=== PATIENT | female | born 1975 | race American Indian/Alaskan Native ===

== ENCOUNTER 2016-09-27 10:44 | Emergency (ER) | payer OTHER ==
[2016-09-27 11:06] VITALS: BP 130/99
--- NOTE | 2016-09-27 13:24 | Emergency Department Report ---
ED ENT HPI - General Chief complaint: Dental/Oral Stated complaint: FACIAL PAIN/SWELLING Time Seen by Provider: 09/27/16 13:22 Source: patient Mode of arrival: Ambulatory Limitations: No Limitations - History of Present Illness MD complaint: tooth pain, ear pain -: Gradual Severity scale (0 -10): 5 Quality: aching Context- Dental: history of dental caries, poor dental care - Related Data Home Medications Medication Instructions Recorded Confirmed Last Taken Aspirin EC [Aspirin Enteric Coated 81 mg PO DAILY 08/21/15 08/21/15 Unknown TAB] FLUoxetine HCL [PROzac] 40 mg PO DAILY 08/21/15 08/21/15 Unknown Wellbutrin 150 mg PO DAILY 08/21/15 08/21/15 Unknown Previous Rx's Medication Instructions Recorded Last Taken Type Famotidine [Pepcid] 20 mg PO BID #60 tablet 08/23/15 Unknown Rx Ibuprofen [Motrin] 600 mg PO Q8H PRN #40 tablet 01/20/16 Unknown Rx oxyCODONE /ACETAMINOPHEN [Percocet 1 tab PO Q4H PRN #15 tablet 01/20/16 Unknown Rx 5/325 mg] Azithromycin [Zithromax TAB] 250 mg PO QDAY #5 tablet 04/06/16 Unknown Rx Amoxicillin [Amoxicillin TAB] 875 mg PO BID #20 tablet 09/27/16 Unknown Rx Tramadol ER (Nf) [Ultram ER (Nf)] 50 mg PO TID #12 tab.er.24h 09/27/16 Unknown Rx Allergies Allergy/AdvReac Type Severity Reaction Status Date / Time Penicillins Allergy Anaphylaxis Verified 01/20/16 14:55 ED Dental HPI - General Chief complaint: Dental/Oral Stated complaint: FACIAL PAIN/SWELLING Time Seen by Provider: 09/27/16 13:22 Source: patient Mode of arrival: Ambulatory Limitations: No Limitations - History of Present Illness complaint: tooth pain, ear pain -: Gradual 1 - LOCALIZED SEVERE DECAY.NO TRISMUS OR ADENOPATHY ASSOCIATED. Severity: moderate Worsens with: chewing, hot/cold liquids Context- Dental: history of dental caries, poor dental care Dental Associated Symptons: Yes: Earache - Related Data Home Medications Medication Instructions Recorded Confirmed Last Taken Aspirin EC [Aspirin Enteric Coated 81 mg PO DAILY 08/21/15 08/21/15 Unknown TAB] FLUoxetine HCL [PROzac] 40 mg PO DAILY 08/21/15 08/21/15 Unknown Wellbutrin 150 mg PO DAILY 08/21/15 08/21/15 Unknown Previous Rx's Medication Instructions Recorded Last Taken Type Famotidine [Pepcid] 20 mg PO BID #60 tablet 08/23/15 Unknown Rx Ibuprofen [Motrin] 600 mg PO Q8H PRN #40 tablet 01/20/16 Unknown Rx oxyCODONE /ACETAMINOPHEN [Percocet 1 tab PO Q4H PRN #15 tablet 01/20/16 Unknown Rx 5/325 mg] Azithromycin [Zithromax TAB] 250 mg PO QDAY #5 tablet 04/06/16 Unknown Rx Amoxicillin [Amoxicillin TAB] 875 mg PO BID #20 tablet 09/27/16 Unknown Rx Tramadol ER (Nf) [Ultram ER (Nf)] 50 mg PO TID #12 tab.er.24h 09/27/16 Unknown Rx Allergies Allergy/AdvReac Type Severity Reaction Status Date / Time Penicillins Allergy Anaphylaxis Verified 01/20/16 14:55 ED Review of Systems ROS: Stated complaint: FACIAL PAIN/SWELLING Other details as noted in HPI Constitutional: denies: chills, fever Eyes: denies: eye pain, eye discharge, vision change ENT: as per HPI, ear pain, dental pain. denies: throat pain Respiratory: denies: cough, shortness of breath, wheezing Cardiovascular: denies: chest pain, palpitations Endocrine: no symptoms reported Gastrointestinal: denies: abdominal pain, nausea, diarrhea Genitourinary: denies: urgency, dysuria, discharge Musculoskeletal: denies: back pain, joint swelling, arthralgia Skin: denies: rash, lesions Neurological: denies: headache, weakness, paresthesias Psychiatric: denies: anxiety, depression Hematological/Lymphatic: denies: easy bleeding, easy bruising ED Past Medical Hx - Past Medical History Hx Hypertension: Yes (1992) Hx Congestive Heart Failure: No Hx Diabetes: Yes Hx Asthma: Yes Hx COPD: No - Surgical History Additional Surgical History: LEG SURGERY,. uterine ablasion - Social History Smoking Status: Never Smoker Substance Use Type: Marijuana - Medications Home Medications: Home Medications Medication Instructions Recorded Confirmed Last Taken Type Aspirin EC [Aspirin Enteric Coated 81 mg PO DAILY 08/21/15 08/21/15 Unknown History TAB] FLUoxetine HCL [PROzac] 40 mg PO DAILY 08/21/15 08/21/15 Unknown History Wellbutrin 150 mg PO DAILY 08/21/15 08/21/15 Unknown History Famotidine [Pepcid] 20 mg PO BID #60 tablet 08/23/15 Unknown Rx Ibuprofen [Motrin] 600 mg PO Q8H PRN #40 tablet 01/20/16 Unknown Rx oxyCODONE /ACETAMINOPHEN [Percocet 1 tab PO Q4H PRN #15 tablet 01/20/16 Unknown Rx 5/325 mg] Azithromycin [Zithromax TAB] 250 mg PO QDAY #5 tablet 04/06/16 Unknown Rx Amoxicillin [Amoxicillin TAB] 875 mg PO BID #20 tablet 09/27/16 Unknown Rx Tramadol ER (Nf) [Ultram ER (Nf)] 50 mg PO TID #12 tab.er.24h 09/27/16 Unknown Rx ED Physical Exam - General Limitations: No Limitations General appearance: alert, in no apparent distress - Head Head exam: Present: atraumatic, normocephalic - Eye Eye exam: Present: normal appearance, PERRL, EOMI Pupils: Present: normal accommodation, irregular - ENT ENT exam: Present: mucous membranes moist, other (see dental decay image) - Neck Neck exam: Present: normal inspection - Respiratory Respiratory exam: Present: normal lung sounds bilaterally. Absent: respiratory distress - Cardiovascular Cardiovascular Exam: Present: regular rate, normal rhythm. Absent: systolic murmur, diastolic murmur, rubs, gallop - GI/Abdominal GI/Abdominal exam: Present: soft, normal bowel sounds - Extremities Exam Extremities exam: Present: normal inspection - Back Exam Back exam: Present: normal inspection - Neurological Exam Neurological exam: Present: alert, oriented X3 - Psychiatric Psychiatric exam: Present: normal affect, normal mood - Skin Skin exam: Present: warm, dry, intact, normal color. Absent: rash ED Course Vital Signs 09/27/16 11:01 Temperature 98.6 F Pulse Rate 89 Respiratory 18 Rate Blood Pressure 130/99 O2 Sat by Pulse 100 Oximetry Critical care attestation.: If time is entered above; I have spent that time in minutes in the direct care of this critically ill patient, excluding procedure time. ED Disposition Clinical Impression: Dental decay Disposition: DISCHARGED TO HOME OR SELFCARE Is pt being admited?: No Condition: Stable Instructions: Toothache (ED), Dental Caries (ED) Prescriptions: Amoxicillin [Amoxicillin TAB] 875 mg PO BID #20 tablet Tramadol ER (Nf) [Ultram ER (Nf)] 50 mg PO TID #12 tab.er.24h Referrals: [facility] CARE,MD [Primary Care Provider] - 3-5 Days Forms: Work/School Release Form(ED) Time of Disposition: 13:40
== END 2016-09-27 13:44 | disposition home or self-care (01) ==
LOC: ED 10:44
DX: K02.9 Dental caries, unspecified (principal); Z79.82 Long term (current) use of aspirin; Z88.0 Allergy status to penicillin; I10 Essential (primary) hypertension; E11.9 Type 2 diabetes mellitus without complications; J44.9 Chronic obstructive pulmonary disease, unspecified; F12.10 Cannabis abuse, uncomplicated
CPT/HCPCS: 82962

== ENCOUNTER 2017-09-02 17:55 | Emergency (ER) | payer OTHER ==
[2017-09-02] MEDS ORDERED: TYLENOL PO ONE (19:40)
[2017-09-03] MEDS ORDERED: BENADRYL PO ONE ×2 (03:30→03:32)
[2017-09-03] MEDS ORDERED: TYLENOL/CODEINE ONE (03:30)
[2017-09-03] MEDS ORDERED: PHENERGAN PO ONE (03:30)
[2017-09-03] MEDS ORDERED: TYLENOL/CODEINE PO ONE (03:30)
[2017-09-03] MEDS ORDERED: PHENERGAN ONE (03:31)
--- NOTE | 2017-09-03 03:31 | Emergency Department Report ---
HPI - General Chief Complaint: Upper Respiratory Infection Time Seen by Provider: 09/03/17 01:01 - HPI HPI: Patient here complaining of cough, cold symptoms, body ache and generalized aching. She reports that she is having low-grade fever. She reports that this has been going on for over a week but she developed low-grade fever and body ache over the last 3 days. Denies any nausea or vomiting or headache. Denies any neck pain or stiffness. Denies any chest pain or shortness of breath. Reports nasal congestion and drainage. Denies any sore throat. Generalized aching 05/01. She says she's been taking [id number] cough and cold and is not helping. She says she feels like she has the flu. Patient has a history of asthma and diabetes. Blood sugar is stable in ER she also has a history of hypertension. She denies any urinary burning frequency or urgency. ED Past Medical Hx - Past Medical History Previous Medical History?: Yes Hx Hypertension: Yes (1992) Hx Congestive Heart Failure: No Hx Diabetes: Yes Hx Asthma: Yes Hx COPD: No - Surgical History Past Surgical History?: Yes Additional Surgical History: LEG SURGERY,. uterine ablasion - Family History Family history: hypertension - Social History Smoking Status: Never Smoker Substance Use Type: None - Medications Home Medications: Home Medications Medication Instructions Recorded Confirmed Last Taken Type Aspirin EC [Aspirin Enteric Coated 81 mg PO DAILY 08/21/15 08/21/15 Unknown History TAB] FLUoxetine HCL [PROzac] 40 mg PO DAILY 08/21/15 08/21/15 Unknown History Wellbutrin 150 mg PO DAILY 08/21/15 08/21/15 Unknown History Famotidine [Pepcid] 20 mg PO BID #60 tablet 08/23/15 Unknown Rx Ibuprofen [Motrin] 600 mg PO Q8H PRN #40 tablet 01/20/16 Unknown Rx oxyCODONE /ACETAMINOPHEN [Percocet 1 tab PO Q4H PRN #15 tablet 01/20/16 Unknown Rx 5/325 mg] Amoxicillin [Amoxicillin TAB] 875 mg PO BID #20 tablet 09/27/16 Unknown Rx Tramadol ER (Nf) [Ultram ER (Nf)] 50 mg PO TID #12 tab.er.24h 09/27/16 Unknown Rx Azithromycin [Zithromax TAB] 250 mg PO QDAY 5 Days #5 tablet 09/03/17 Unknown Rx Cetirizine HCl [ZyrTEC] 10 mg PO Q8H 14 Days #14 capsule 09/03/17 Unknown Rx Fluticasone [Flonase] 1 spray NS QDAY 14 Days #1 bottle 09/03/17 Unknown Rx Promethazine /Codeine 5 ml PO Q8H PRN 5 Days #75 ml 09/03/17 Unknown Rx [Phenergan/Codeine 6.25-10 mg/5Ml] ED Review of Systems ROS: Stated complaint: FLU LIKE SYMPTOMS Other details as noted in HPI Comment: All other systems reviewed and negative Constitutional: no symptoms reported Eyes: denies: eye pain, eye discharge, vision change ENT: congestion. denies: ear pain, throat pain Respiratory: cough. denies: orthopnea, shortness of breath, SOB with exertion, SOB at rest, stridor, wheezing Cardiovascular: denies: chest pain, palpitations, dyspnea on exertion, orthopnea , edema, syncope, paroxysmal nocturnal dyspnea Gastrointestinal: denies: abdominal pain, nausea, vomiting, diarrhea, constipation, hematemesis, melena, hematochezia Genitourinary: denies: urgency, dysuria, frequency, hematuria, discharge, abnormal menses, dyspareunia Musculoskeletal: myalgia. denies: back pain, joint swelling, arthralgia Skin: denies: rash Neurological: denies: headache, weakness, numbness, paresthesias, confusion, abnormal gait, vertigo Physical Exam - Physical Exam Vital Signs: Vital Signs 09/02/17 09/02/17 09/02/17 19:35 20:47 23:58 Temperature 99.5 F 100.7 F H Pulse Rate 102 H 112 H 117 H Respiratory 16 19 Rate Blood Pressure 122/64 Blood Pressure 124/73 132/80 [Left] O2 Sat by Pulse 100 98 Oximetry Lab Results 09/02/17 Range/Units 19:54 POC Glucose 87 (70-105) Vital Signs 09/02/17 09/02/17 09/02/17 19:35 20:47 23:58 Temperature 99.5 F 100.7 F H Pulse Rate 102 H 112 H 117 H Respiratory 16 19 Rate Blood Pressure 122/64 Blood Pressure 124/73 132/80 [Left] O2 Sat by Pulse 100 98 Oximetry 09/03/17 09/03/17 03:34 04:46 Temperature Pulse Rate 88 Respiratory 18 Rate Blood Pressure Blood Pressure [Left] O2 Sat by Pulse Oximetry General: This is a 42-year-old female that is stable and nontoxic in appearance. Physical Exam: Head: Normocephalic atraumatic Ears:Biateral TM congested without erythema and loss of bony landmarks. Ortiz EAC with normal exam. No mastoid bone tenderness. Mouth: Moist, no pharyngeal erythema or exudate . No tonsillar erythema or exudate. UVULA midline and oral airways patent. No peritonsillar abscess Neck: Nontender to palpate, supple, normal range of motion. No adenopathy. No c- spine tenderness. Nose: Bilateral nasal mucosa congested and erythema with clear drainage. Maxillary and frontal sinuses tender to palpate. Eyes: Sclerae and conjunctiva without injection. Bilateral pupils equal and reactive to light. Bilateral lids are normal. Normal accommodation.BEOMI Extremity: No clubbing, cyanosis or edema +2 pulses overall extremities no neurovascular compromise Lungs: Clear to auscultate bilaterally, no rhonchi wheezes or rales. Normal work of breathing and no chest wall tenderness. Dry cough CV: S1, S2. Tachycardic at 102 ,Regular rate rhythm, negative murmur. Capillary refill is less than 3 seconds Skin: Clean dry and intact, no rashes or lesions Psych: Normal mood and behavior ED Course Vital Signs 09/02/17 09/02/17 09/02/17 19:35 20:47 23:58 Temperature 99.5 F 100.7 F H Pulse Rate 102 H 112 H 117 H Respiratory 16 19 Rate Blood Pressure 122/64 Blood Pressure 124/73 132/80 [Left] O2 Sat by Pulse 100 98 Oximetry Vital Signs 09/02/17 09/02/17 09/02/17 19:35 20:47 23:58 Temperature 99.5 F 100.7 F H Pulse Rate 102 H 112 H 117 H Respiratory 16 19 Rate Blood Pressure 122/64 Blood Pressure 124/73 132/80 [Left] O2 Sat by Pulse 100 98 Oximetry 09/03/17 09/03/17 03:34 04:46 Temperature Pulse Rate 88 Respiratory 18 Rate Blood Pressure Blood Pressure [Left] O2 Sat by Pulse Oximetry - Reevaluation(s) Reevaluation #1: 09/03/17 04:54 Patient received Tylenol 650 mg in triage area for fever and body aches. She received Tylenol codeine elixir 10 male, Benadryl 25 mg by mouth and Phenergan 50 mg by mouth in emergency room. Blood sugar is stable and influenza A and B is negative. Chest x-ray stable ED Medical Decision Making - Lab Data Lab Results 09/02/17 Range/Units 19:54 POC Glucose 87 (70-105) Influenza A and B- - Radiology Data Radiology results: report reviewed Chest x-ray reveals no acute cardiopulmonary findings - Medical Decision Making ED course: Patient here to be evaluated for having symptoms over a week of congestion, cough and cold with generalized aching. Physical findings for sinusitis, cough, fever. Patient lungs are clear and x-ray reveals no acute cardiopulmonary findings. Influenza A and B are negative. I instructed the patient regarding her lab work and also chest x-ray. Patient was given Tylenol 650 mg by mouth in triage area, Tylenol with codeine 10 mg by mouth for cough. She received Benadryl 50 mg by mouth and Phenergan 25 mg by mouth in emergency room. Patient orally hydrated in emergency room and discharged from emergency room with her family in stable condition with prescription for Phenergan with codeine, Zithromax, Zyrtec and Flonase. Critical care attestation.: If time is entered above; I have spent that time in minutes in the direct care of this critically ill patient, excluding procedure time. ED Disposition Clinical Impression: Fever in adult, Upper respiratory infection with cough and congestion Sinusitis Qualifiers: Sinusitis location: unspecified location Chronicity: acute Recurrence: not specified as recurrent Qualified Code(s): J01.90 - Acute sinusitis, unspecified Disposition: DC-01 TO HOME OR SELFCARE Is pt being admited?: No Does the pt Need Aspirin: No Condition: Stable Instructions: Fever in Adults (ED), Acute Cough (ED), Sinusitis (ED), Musculoskeletal Pain (ED) Additional Instructions: Please increase her fluid intake Flush nostrils with saline nasal spray take antibiotic and other medication as prescribed F/U with primary care physician as instructed Please do not drive or operate heavy machinery while taking Phenergan with codeine as this medication causes drowsiness Prescriptions: Azithromycin [Zithromax TAB] 250 mg PO QDAY 5 Days #5 tablet Cetirizine HCl [ZyrTEC] 10 mg PO Q8H 14 Days #14 capsule Fluticasone [Flonase] 1 spray NS QDAY 14 Days #1 bottle Promethazine /Codeine [Phenergan/Codeine 6.25-10 mg/5Ml] 5 ml PO Q8H PRN 5 Days #75 ml PRN Reason: cough Referrals: PRIMARY CARE,MD [Primary Care Provider] - 2-3 Days [facility] [Outside] - 2-3 Days Forms: Work/School Release Form(ED), Accompanied Note
--- NOTE | 2017-09-03 04:09 | XRay Report ---
FINAL REPORT EXAM: XR CHEST ROUTINE 2V HISTORY: cough and fever TECHNIQUE: PA and lateral chest radiographs PRIORS: None. FINDINGS: No mediastinal shift. Cardiac silhouette is not enlarged. No pneumothorax, effusion, or focal pulmonary opacity. No acute skeletal finding. IMPRESSION: No focal pulmonary opacity.
[2017-09-03 05:19] VITALS: BP 131/76
== END 2017-09-03 05:19 | disposition home or self-care (01) ==
LOC: ED 17:55
DX: J01.90 Acute sinusitis, unspecified (principal); I10 Essential (primary) hypertension; E11.9 Type 2 diabetes mellitus without complications; J45.909 Unspecified asthma, uncomplicated; Z88.0 Allergy status to penicillin; Z98.890 Other specified postprocedural states
CPT/HCPCS: 71046; 82962; 87400; 99283; Q0169

== ENCOUNTER 2017-12-18 16:50 | Emergency (ER) | payer OTHER ==
[2017-12-18] MEDS ORDERED: NACL 0.9% 1000 ML 1,000 ML IV ONE (16:56)
[2017-12-18 17:05] VITALS: BP 186/116
[2017-12-18] MEDS ORDERED: TORADOL IV ONE (17:16)
[2017-12-18] MEDS ORDERED: SUBLIMAZE IV ONE (17:16)
[2017-12-18] MEDS ORDERED: ZOFRAN IV ONE (17:16)
[2017-12-18] MEDS ORDERED: BENADRYL IV ONE (17:18)
--- NOTE | 2017-12-18 17:27 | Emergency Department Report ---
HPI - HPI HPI: Room 17 The patient is a 42-year-old female presenting with chief complaint of abdominal pain. The patient states since yesterday she's had a dull constant pain in the right lower quadrant of her abdomen. Patient states ibuprofen does not help. The patient admits to nausea but denies vomiting. Patient denies dysuria, hematuria or fever. Location: Right lower quadrant Duration: Constant since yesterday Quality: Dull Severity: 05/31 Modifying factors: [see above] Context: [see above] Mode of transportation: [not driving] <KENNA ACOSTA - Last Filed: 12/18/17 20:25> <BARTOLOME COOK - Last Filed: 12/18/17 21:49> - General Chief Complaint: Abdominal Pain Time Seen by Provider: 12/18/17 17:05 ED Past Medical Hx - Past Medical History Previous Medical History?: Yes Hx Hypertension: Yes (1993) Hx Diabetes: Yes Hx Psychiatric Treatment: Yes (depression) Hx Asthma: Yes - Surgical History Past Surgical History?: No Additional Surgical History: LEG SURGERY,. uterine ablasion, myomectomy,, lysis of adhesions - Family History Family history: no significant - Social History Smoking Status: Never Smoker Substance Use Type: Marijuana <KENNA ACOSTA - Last Filed: 12/18/17 20:25> <BARTOLOME COOK - Last Filed: 12/18/17 21:49> - Medications Home Medications: Home Medications Medication Instructions Recorded Confirmed Last Taken Type Aspirin EC [Aspirin Enteric Coated 81 mg PO DAILY 08/21/15 08/21/15 Unknown History TAB] FLUoxetine HCL [PROzac] 40 mg PO DAILY 08/21/15 08/21/15 Unknown History Wellbutrin 150 mg PO DAILY 08/21/15 08/21/15 Unknown History Famotidine [Pepcid] 20 mg PO BID #60 tablet 08/23/15 Unknown Rx Ibuprofen [Motrin] 600 mg PO Q8H PRN #40 tablet 01/20/16 Unknown Rx oxyCODONE /ACETAMINOPHEN [Percocet 1 tab PO Q4H PRN #15 tablet 01/20/16 Unknown Rx 5/325 mg] Amoxicillin [Amoxicillin TAB] 875 mg PO BID #20 tablet 09/27/16 Unknown Rx Tramadol ER (Nf) [Ultram ER (Nf)] 50 mg PO TID #12 tab.er.24h 09/27/16 Unknown Rx Azithromycin [Zithromax TAB] 250 mg PO QDAY 5 Days #5 tablet 09/03/17 Unknown Rx Cetirizine HCl [ZyrTEC] 10 mg PO Q8H 14 Days #14 capsule 09/03/17 Unknown Rx Fluticasone [Flonase] 1 spray NS QDAY 14 Days #1 bottle 09/03/17 Unknown Rx Promethazine /Codeine 5 ml PO Q8H PRN 5 Days #75 ml 09/03/17 Unknown Rx [Phenergan/Codeine 6.25-10 mg/5Ml] HYDROcodone/APAP 5-325 [[place] 1 - 2 each PO Q6HR PRN #14 tablet 12/18/17 Unknown Rx 5/325] Promethazine [Phenergan TAB] 25 mg PO Q6HR PRN #20 tab 12/18/17 Unknown Rx ED Review of Systems ROS: Stated complaint: ABDOMINAL PAIN Other details as noted in HPI Constitutional: denies: fever Gastrointestinal: abdominal pain. denies: vomiting Genitourinary: denies: dysuria, hematuria Musculoskeletal: denies: back pain <KENNA ACOSTA K - Last Filed: 12/18/17 20:25> ROS: Stated complaint: ABDOMINAL PAIN Other details as noted in HPI <BARTOLOME COOK C - Last Filed: 12/18/17 21:49> Physical Exam - Physical Exam Vital Signs: Vital Signs 12/18/17 17:04 Pulse Rate 90 Respiratory 22 Rate Blood Pressure 186/116 [Left] O2 Sat by Pulse 99 Oximetry Physical Exam: GENERAL: The patient is well-developed well-nourished female kneeling on stretcher appearing to be in moderate discomfort. [] HEENT: Normocephalic. Atraumatic. Extraocular motions are intact. Patient has moist mucous membranes. NECK: Supple. Trachea midline CHEST/LUNGS: Clear to auscultation. There is no respiratory distress noted. HEART/CARDIOVASCULAR: Regular. There is no tachycardia. There is no gallop rub or murmur. ABDOMEN: Abdomen is soft diffusely, there is no guarding. Patient states that applying pressure in the right lower quadrant helps ameliorate pain. Patient has normal bowel sounds. There is no abdominal distention. SKIN: There is no rash. There is no edema. There is no diaphoresis. NEURO: The patient is awake, alert, and oriented. The patient is cooperative. The patient has normal speech MUSCULOSKELETAL: There is right CVA tenderness. There is no evidence of acute injury. <KENNA ACOSTA - Last Filed: 12/18/17 20:25> - Physical Exam Vital Signs: Vital Signs 12/18/17 12/18/17 17:04 17:24 Pulse Rate 90 Respiratory 22 24 Rate Blood Pressure 186/116 [Left] O2 Sat by Pulse 99 99 Oximetry <BARTOLOME COOK - Last Filed: 12/18/17 21:49> ED Course Vital Signs 12/18/17 17:04 Pulse Rate 90 Respiratory 22 Rate Blood Pressure 186/116 [Left] O2 Sat by Pulse 99 Oximetry - Reevaluation(s) Reevaluation #1: 12/18/17 20:29 Patient improved. Patient informed of CT findings and pending ultrasound report <KENNA ACOSTA - Last Filed: 12/18/17 20:25> Vital Signs 12/18/17 12/18/17 17:04 17:24 Pulse Rate 90 Respiratory 22 24 Rate Blood Pressure 186/116 [Left] O2 Sat by Pulse 99 99 Oximetry <BARTOLOME COOK - Last Filed: 12/18/17 21:49> ED Medical Decision Making - Lab Data Result diagrams: 12/18/17 17:35 12/18/17 17:35 - Radiology Data Radiology results: report reviewed (CT abdomen and pelvis), image reviewed (CT abdomen and pelvis, pelvic ultrasound) [address] [address] Cat Scan Report Signed Patient: BRITNI BOWLES MR#: [id number] : 1975 Acct:[id number] Age/Sex: 42 / F ADM Date: 12/18/17 Loc: ED Attending Dr: Ordering Physician: KENNA ACOSTA MD Date of Service: 12/18/17 Procedure(s): CT abdomen pelvis wo/w con Accession Number(s): [id number] cc: KENNA ACOSTA MD FINAL REPORT EXAM: CT ABDOMEN PELVIS WO/W CON HISTORY: right lower quadrant abdominal pain TECHNIQUE: Spiral CT scanning of the abdomen and pelvis before and after the uneventful administration of IV contrast. Multiplanar reformations. 100 mL Omnipaque IV. PRIORS: None. FINDINGS: Abdomen: Visualized lung bases grossly unremarkable. No radiopaque gallstones. Liver without significant abnormality. Spleen without significant abnormality. Pancreas without significant abnormality. Kidneys without significant abnormality. Adrenal glands without significant abnormality. Pelvis: Bowel grossly unremarkable. Appendix within normal limits. No significant free peritoneal fluid, discrete abscess or apparent adenopathy. Abdominal aorta non-aneurysmal. IMPRESSION: 1. No acute findings. Transcribed By: [facility] Dictated By: NAFISA HENDRICKS MD Electronically Authenticated By: NAFISA HENDRICKS MD Signed Date/Time: 12/18/171913 DD/ 13 TD/TT: 12/18/171913 - Differential Diagnosis renal colic, appendicitis, ovarian torsion, pyelonephritis <KENNA ACOSTA - Last Filed: 12/18/17 20:25> - Lab Data Result diagrams: 12/18/17 17:35 12/18/17 17:35 - Radiology Data US transvaginal IMPRESSION: 3.2 centimeter mixed echoic lesion of the anterior fundus a is consistent with fibroid. A 1.3 centimeters cystic lesion of the posterior fundus may represent a fibroid with cystic degeneration. Follow-up studies are recommended. 1.6 centimeter cystic lesion with internal echoes in the cervix most likely represents a hemorrhagic nabothian cyst. Follow-up studies are recommended.. <BARTOLOME COOK - Last Filed: 12/18/17 21:49> Critical care attestation.: If time is entered above; I have spent that time in minutes in the direct care of this critically ill patient, excluding procedure time. <KENNA ACOSTA - Last Filed: 12/18/17 20:25> Critical care attestation.: If time is entered above; I have spent that time in minutes in the direct care of this critically ill patient, excluding procedure time. <BARTOLOME COOK - Last Filed: 12/18/17 21:49> ED Disposition Is pt being admited?: No Does the pt Need Aspirin: No <KENNA ACOSTA - Last Filed: 12/18/17 20:25> Is pt being admited?: No Does the pt Need Aspirin: No Time of Disposition: 21:48 <BARTOLOME COOK - Last Filed: 12/18/17 21:49> Clinical Impression: Uterine fibroid, Nabothian cyst Disposition: TO HOME OR SELFCARE Condition: Stable Instructions: Abdominal Pain (ED), Uterine Fibroids (ED) Additional Instructions: Return to the emergency department immediately should you develop worsening symptoms, fever, inability to tolerate food or liquid or any other concerns. Take the copy of the ultrasound provided to [facility] doctor for further management of your fibroids. Prescriptions: HYDROcodone/APAP 5-325 [[place] 5/325] 1 - 2 each PO Q6HR PRN #14 tablet PRN Reason: Pain Promethazine [Phenergan TAB] 25 mg PO Q6HR PRN #20 tab PRN Reason: Nausea Referrals: [facility] [Provider Group] - 3-5 Days
[2017-12-18 18:07] LABS: Basophils % (Auto) 0.4 % (0.0-1.8); Eosinophils # (Auto) 0.1 K/mm3 (0.0-0.4); Eosinophils % (Auto) 0.9 % (0.0-4.3); Hematocrit 36.3 % (30.3-42.9); Hemoglobin 12.4 gm/dl (10.1-14.3); Lymphocytes # (Auto) 1.3 K/mm3 (1.2-5.4); Lymphocytes % (Auto) 11.8 % (13.4-35.0); Mean Corpuscular HGB Conc 34 % (30-34); Mean Corpuscular Hemoglobin 33 pg (28-32); Mean Corpuscular Volume 96 fl (79-97); Monocytes # (Auto) 0.6 K/mm3 (0.0-0.8); Monocytes % (Auto) 5.2 % (0.0-7.3); Platelet Count 467 K/mm3 (140-440); Red Cell Distribution Width 12.5 % (13.2-15.2)
[2017-12-18 18:09] LABS: INR 0.93 (0.87-1.13)
[2017-12-18 18:10] LABS: Partial Thromboplastin Time 22.5 Sec. (24.2-36.6)
[2017-12-18 18:16] LABS: Alanine Aminotransferase 21 units/L (7-56); Albumin 3.8 g/dL (3.9-5); BUN/Creatinine Ratio 23; Blood Urea Nitrogen 14 mg/dL (7-17); Hemolysis Index 2; Lipase 26 units/L (13-60)
--- NOTE | 2017-12-18 19:18 | Cat Scan Report ---
FINAL REPORT EXAM: CT ABDOMEN PELVIS WO/W CON HISTORY: right lower quadrant abdominal pain TECHNIQUE: Spiral CT scanning of the abdomen and pelvis before and after the uneventful administration of IV contrast. Multiplanar reformations. 100 mL Omnipaque IV. PRIORS: None. FINDINGS: Abdomen: Visualized lung bases grossly unremarkable. No radiopaque gallstones. Liver without significant abnormality. Spleen without significant abnormality. Pancreas without significant abnormality. Kidneys without significant abnormality. Adrenal glands without significant abnormality. Pelvis: Bowel grossly unremarkable. Appendix within normal limits. No significant free peritoneal fluid, discrete abscess or apparent adenopathy. Abdominal aorta non-aneurysmal. IMPRESSION: 1. No acute findings.
--- NOTE | 2017-12-18 20:28 | Ultrasound Report ---
FINAL REPORT PROCEDURE: US PELVIS DUPLEX DOPPLER COMP TECHNIQUE: Real-time transabdominal sonography in multiple planes of pelvis was performed with image documentation. This examination was performed without Doppler. Vascular abnormalities, including ovarian torsion, will not be detectable without Doppler evaluation. CPT 47737 8.3 x 5.7 x 5.0 HISTORY: right pelvic pain COMPARISON: No prior studies are available for comparison. FINDINGS: Uterus is a partially visualized due due to incomplete distension of urinary bladder. Uterus measures 8.3 x 5.7 x 5.0 centimeters with an endometrial thickness of 4 millimeters. Bilateral ovaries are not well visualized. IMPRESSION: Suboptimal study due to only partial distension of urinary bladder. Please also refer to the report on ultrasound pelvis transvaginal.
--- NOTE | 2017-12-18 20:46 | Ultrasound Report ---
FINAL REPORT PROCEDURE: US TRANSVAGINAL TECHNIQUE: Real-time transvaginal sonography in multiple planes of the pelvis was performed with image documentation. This examination was performed without Doppler. Vascular abnormalities, including ovarian torsion, will not be detectable without Doppler evaluation. CPT 11324 HISTORY: right pelvic pain COMPARISON: No prior studies are available for comparison. FINDINGS: UTERUS Size: 8.3 x 5.7 x 5.0 cm. Endometrial thickness: 4 mm. Orientation: anteverted. Cervix: Normal. Fibroids/masses: 3.2 centimeter mixed echoic lesion is noted involving the anterior fundus. An irregular cystic lesion measuring 1.3 centimeters is noted in the left posterior fundus. 1.6 centimeter cystic lesion with internal echoes is noted in the cervix.. RIGHT Ovary: 2.6 x 2.0 x 1.8 cm. Appearance: Normal. LEFT Ovary: 2.7 x 1.5 x 2.0 cm. Appearance: Normal. Pelvic fluid: Minimal free fluid is noted in the pelvic cavity peer. Other: None. IMPRESSION: 3.2 centimeter mixed echoic lesion of the anterior fundus a is consistent with fibroid. A 1.3 centimeters cystic lesion of the posterior fundus may represent a fibroid with cystic degeneration. Follow-up studies are recommended. 1.6 centimeter cystic lesion with internal echoes in the cervix most likely represents a hemorrhagic nabothian cyst. Follow-up studies are recommended..
== END 2017-12-18 22:25 | disposition home or self-care (01) ==
LOC: ED 16:50
DX: R10.31 Right lower quadrant pain (principal); R11.0 Nausea; I10 Essential (primary) hypertension; F32.9 Major depressive disorder, single episode, unspecified; E11.9 Type 2 diabetes mellitus without complications; J45.909 Unspecified asthma, uncomplicated; F12.10 Cannabis abuse, uncomplicated; Z88.0 Allergy status to penicillin
CPT/HCPCS: 36415; 74178; 76830; 80053; 83690; 84703; 85025; 85610; 85730; 86850; 86900; 86901; 93975; 96361; 96374; 96375; 99285; J1200; J1885; J2405; J3010; J7030; Q9967